=== PATIENT | female | born 1940 | race Two or more races ===

== ENCOUNTER 2020-11-12 08:30 | Outpatient (CLI) | payer OTHER | END 2020-11-12 08:42 | disposition home or self-care (01) | LOC: SONOGRAMA 08:30 | PROVIDERS: ATTEND Pathology Anatomic Pathology & Clinical Pathology | DX: E04.1 Nontoxic single thyroid nodule (principal); D34 Benign neoplasm of thyroid gland; E04.8 Other specified nontoxic goiter ==